=== PATIENT | female | born 1985 | race Caucasian/White ===

== ENCOUNTER → 2022-05-13 | Outpatient (CLI) | payer BC ==
--- NOTE | 2022-05-13 10:49 | USB ---
Reason for Exam: Clinical finding. Patient History: Menarche at age 10. Premenopausal. Paternal aunt had breast cancer. Maternal aunt had breast cancer, age 50. Risk Values: Dee 5 year model risk: 0.4%. NCI Lifetime model risk: 8.1%. Technique: Method: Targeted. Findings: The periareolar of the right breast and the retroareolar of the right breast were scanned. A complete US of retroareolar region of the right breast were reviewed. No solid or cystic masses are identified. Overall Assessment: Negative, BI-RAD 1 Management: Screening Mammogram of both breasts in 1 year. A clinical breast exam by your physician is recommended on an annual basis and results should be correlated with mammographic findings. Electronically signed and approved by: Gaudencio Hope DO
--- NOTE | 2022-05-13 10:52 | MM ---
Reason for Exam: Clinical finding. Indicated Problems: Non-bloody discharge of the right side (Clear) for 2 Month(s). Bloody discharge of the right side for 2 Month(s). Patient History: Menarche at age 10. Premenopausal. Paternal aunt had breast cancer. Maternal aunt had breast cancer, age 50. Risk Values: Dee 5 year model risk: 0.4%. NCI Lifetime model risk: 8.1%. Tissue Density: There are scattered fibroglandular densities. Findings: Analyzed By CAD. No suspicious masses, distortions or calcifications. Overall Assessment: Negative, BI-RAD 1 Management: Screening Mammogram of both breasts in 1 year. A clinical breast exam by your physician is recommended on an annual basis and results should be correlated with mammographic findings. This exam should not preclude additional follow-up of suspicious palpable abnormalities. Results were given to the patient verbally at the time of exam. Electronically signed and approved by: Gaudencio Hope DO
== END | disposition home or self-care (01) ==
LOC: RADMAMWWP 09:38
PROVIDERS: ATTEND Family Medicine
DX: R92.8 Other abnormal and inconclusive findings on diagnostic imaging of breast (principal); Z80.3 Family history of malignant neoplasm of breast
CPT/HCPCS: 77062; 77066